=== PATIENT | male | born 1975 | race Caucasian/White ===

== ENCOUNTER 2018-07-08 18:13 | Emergency (ER) | payer OTHER ==
[~2018-07-08] VITALS: Ht 172.7 cm; Wt 215.5 kg
[2018-07-08 18:20] VITALS: BP 115/64
--- NOTE | 2018-07-08 18:29 | NUR ---
pt ambulates back to the lobby
--- NOTE | 2018-07-08 19:00 | NUR ---
PATIENT PRESENTS TO ED WITH c/o productive cough x 4 days with green plegm, hx; htn, dm, depression, anxiety, AAOX4 WITH EVEN AND UNSTEADY GAIT; LUNGS CLEAR BL; HR EVEN AND REGULAR; PT DENIES ANY FEVER, CP, SOB AT THIS TIME; DENIED PAIN; VSS; PATIENT POSITIONED FOR COMFORT; HOB ELEVATED; BEDRAILS UP X2; BED DOWN. ER MD MADE AWARE OF PT STATUS.
[2018-07-08 19:49] VITALS: BP 111/75
--- NOTE | 2018-07-08 19:50 | NUR ---
Patient discharged with v/s stable. Written and verbal after care instructions given and explained. Patient alert, oriented and verbalized understanding of instructions. Ambulatory with steady gait. All questions addressed prior to discharge. ID band removed. Patient advised to follow up with PMD. Rx of KEFLEX 500,PROMETHAZINE DM, given. Patient educated on indication of medication including possible reaction and side effects. Opportunity to ask questions provided and answered.
== END 2018-07-08 19:50 | disposition home or self-care (01) ==
LOC: MED 18:13
DX: L02.11 Cutaneous abscess of neck (principal); J06.9 Acute upper respiratory infection, unspecified; E11.9 Type 2 diabetes mellitus without complications; I10 Essential (primary) hypertension
CPT/HCPCS: 99283